=== PATIENT | female | born 1975 | race Caucasian/White ===

== ENCOUNTER 2018-11-14 14:32 | Emergency (ER) | payer BC ==
[~2018-11-14] VITALS: Ht 154.9 cm; Wt 50.8 kg
[2018-11-14] MEDS ORDERED: BUTALB-APAP-CA1 EACH PO (14:46)
[2018-11-14] MEDS ORDERED: PROZAC20 MG PO (14:46)
[2018-11-14] MEDS ORDERED: ZOFRAN ODT4 MG PO (14:47)
[2018-11-14] MEDS ORDERED: ZOFRAN4 MG PO (15:49)
[2018-11-14 16:02] VITALS: BP 109/67
== END 2018-11-14 16:02 | disposition home or self-care (01) ==
LOC: M.ERS 14:32
DX: G43.909 Migraine, unspecified, not intractable, without status migrainosus (principal); R11.2 Nausea with vomiting, unspecified; Z90.89 Acquired absence of other organs